=== PATIENT | female | born 1980 | race Caucasian/White ===

== ENCOUNTER → 2016-07-13 | Outpatient (CLI) | payer OTHER | LOC: FIMAGING 11:40 | PROVIDERS: ATTEND Midwife | DX: R93.8 Abnormal findings on diagnostic imaging of other specified body structures (principal); N83.02 Follicular cyst of left ovary ==

== ENCOUNTER → 2016-12-24 | Outpatient (CLI) | payer OTHER ==
--- NOTE | 2016-12-24 13:45 | CPEEG ---
[f rep st] ELECTROENCEPHALOGRAM DATE OF STUDY: 12/24/2016 INTERPRETATION: Normal EEG during wakefulness and sleep. There were no potentially epileptogenic ab normalities present in the recording. REPORT: This EEG contains 10 Hz alpha to the posterior head regions. There was no abnormal activati on at rest, during photic stimulation, or hyperventilation. With hyperventilation, the patient had a normal hyperventilation buildup response composed of frontal dominant, rhythmic delta activity. The patient became drowsy and fell into sustained sleep during the study. There was no abnormal activat ion during drowsiness, sleep, or during times of arousal. /[id number]/MODL
== END ==
LOC: FCPNEURO 08:46
PROVIDERS: ATTEND Psychiatry & Neurology Neurology
DX: R29.818 Other symptoms and signs involving the nervous system (principal); R25.3 Fasciculation

== ENCOUNTER → 2018-06-30 | Outpatient (CLI) | payer OTHER ==
[~2018-06-30] MED LIST: IOPAMIDOL (ISOVUE-300) 100 ML BTL ONE
== END ==
LOC: CIMAGING 08:23
PROVIDERS: ATTEND Family Medicine
DX: R10.9 Unspecified abdominal pain (principal); N88.8 Other specified noninflammatory disorders of cervix uteri
CPT/HCPCS: 74177-PO; Q9967

== ENCOUNTER → 2018-07-02 | Outpatient (CLI) | payer OTHER | LOC: FIMAGING 08:07 | PROVIDERS: ATTEND Family Medicine | DX: N88.9 Noninflammatory disorder of cervix uteri, unspecified (principal); R10.2 Pelvic and perineal pain; R19.7 Diarrhea, unspecified ==